=== PATIENT | female | born 1975 | race Caucasian/White ===

== ENCOUNTER → 2017-07-29 08:12 | Outpatient (CLI) | payer BC, SELFPAY ==
[2015-06-22 03:00] VITALS: BP 122/86
[2017-07-28 09:09] VITALS: BP 120/78; BMI 27.7
[2017-07-29 08:48] LABS: Hemoglobin A1c 5.4 % (4.2-6.3)
[2017-07-29 09:09] LABS: AST(SGOT) 16 U/L (15-37); Alanine Aminotransfer ALT/SGPT 14 U/L (13-56); Albumin, Serum 3.7 g/dL (3.2-5.0); Alkaline Phosphatase 61 U/L (45-117); Anion Gap 9 (5-15); BUN 19 mg/dL (7-18); BUN/Creat Ratio 23.8 RATIO (10-20); Calcium,Total 8.7 mg/dL (8.5-10.1); Chloride 105 mmol/L (98-107); EST Glomerular Filtration Rate 83 mL/min (>60); Est Glom Filt Rate - Afr Amer 100 mL/min (>60); Free T3 2.4 pg/mL (2.18-3.98); Globulin 3.6 g/dL (2.2-4.2); Glucose 111 mg/dL (74-106); Potassium 4.5 mmol/L (3.5-5.1); Protein, Total 7.3 g/dL (6.4-8.2); Sodium Level 140 mmol/L (136-145); T4 Free Direct 0.99 ng/dL (0.76-1.46); Thyroid Stim Hormone (TSH) 1.79 uIU/mL (0.358-3.74)
[2017-08-03 07:10] LABS: Adrenocorticotropic Hormone 18.6 pg/mL (7.2-63.3); Estrogen, Total, Serum 119 pg/mL (.)
== END ==
PROVIDERS: Family Provider Family Medicine; PCP Family Medicine; Visit Provider Nurse Practitioner
DX: L74.519 Primary focal hyperhidrosis, unspecified (principal)
CPT/HCPCS: 36415; 80053; 82024; 82533; 82672; 83036; 84439; 84443; 84481

== ENCOUNTER → 2019-01-10 | Outpatient (CLI) | payer BC, SELFPAY ==
[2017-07-28 09:09] VITALS: BMI 27.7
--- NOTE | 2019-01-10 12:42 | MRI_ITS ---
HISTORY:left ankle sprain, calcaneofibular ligament, fx cuboidINJURY 12/21/18 , pain lateral ankle MRI EXAMINATION OF THE Left ANKLE COMPARISON: none TECHNIQUE: Sagittal T1, STIR, coronal T2 fat-suppressed and axial oblique STIR and axial T2 and T1-weighted images # of images including paperwork:184 FINDINGS: BONES; there is marrow edema that is seen involving the posterior lateral calcaneus at the superior aspect compatible with a contusion. Minimal marrow edema is also seen at the far lateral posterior talar dome at the level of the distal tibiofibular joint There is no evidence of a cuboid fracture. TIBIOTALAR JOINT: There is a small tibiotalar joint effusion. Osteochondral surfaces of the tibiotalar joint are unremarkable. No loose bodies. SUBTALAR JOINT: There is a minimal subtalar joint effusion. Osteochondral sufaces are intact. No loose bodies. OTHER TARSAL JOINTS: Small joint effusion involving the calcaneocuboid joint with associated small ganglion cysts extending adjacent to the inferior lateral aspect of the base of the fifth metatarsal. LIGAMENTS: The anterior tibiofibular ligament is intact. The posterior tlbiofilular ligament is intact The anterior talofibular ligament thickened and irregular suspect for a chronic partial tear. There is fluid that does surround the ligament . The posterior talofibular ligament is intact. The calcaneofibular ligament abnormal signal is seen within the ligament also suggesting a partial chronic tear. The edema in the calcaneus is seen in the region of the insertion of the calcaneal fibular ligament and just distal and posterior to the attachment. The deltoid ligaments are intact. The spring ligament is intact. The ligaments of the tarasal sinus are intact. TENDONS: The flexor tendons are unremarkable. The extensor tendons are unremarkable. Minimal fluid surrounds the peroneus longus tendon and to lesser extent the peroneus brevis tendon in the region of the peroneal tubercle of the calcaneus. This can be seen with tenosynovitis. No evidence of a tear. The retinaculum is unremarkable. The Achilles tendon unrmarkable. PLANTAR APONEUROSIS: The plantar aponeurosis is minimal edema is seen deep to the aponeurotic insertion on the calcaneus. NEUROVASCULAR STRUCTURES: The posterior tibial neurovascular bundle appears normal, without intinsic or extrinsic masses or foci or signal alteration. IMPRESSION: There is edema seen within the posterior lateral calcaneus without evidence of acute fracture. A small bump is seen within this region. This is near the region of the calcaneal attachment of the fibular collateral ligament. 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 Small amount of fluid surrounds the anterior talofibular ligament Tenosynovitis involving the peroneus longus and brevis tendons as discussed Minimal edema seen at the posterior talus at the posterior talofibular joint No evidence of a cuboid fracture Small tibiotalar joint effusion Minimal effusion within the subtalar joint There is also a small effusion seen at the cuboid fifth metatarsal joint with insensate small ganglion cyst at 1834 Reported and signed by: Melissa Lujan DO Electronically Signed: Melissa Lujan DO at 18:33 EDT Tel , Service support , MRI/Lower Ext Joint Only (Routine)
== END | disposition home or self-care (01) ==
PROVIDERS: Family Provider Family Medicine; PCP Family Medicine; Referring Provider Podiatrist Foot & Ankle Surgery; Visit Provider Podiatrist Foot & Ankle Surgery
DX: S93.412A Sprain of calcaneofibular ligament of left ankle, initial encounter (principal); S93.492A Sprain of other ligament of left ankle, initial encounter; S92.125A Nondisplaced fracture of body of left talus, initial encounter for closed fracture
CPT/HCPCS: 73721

== ENCOUNTER → 2020-05-21 15:11 | Outpatient (CLI) | payer BC, SELFPAY ==
[2020-05-21 14:50] VITALS: BMI 29.1
[2020-05-21 15:51] LABS: Estradiol 91.6 pg/mL; Follicle Stimulating Hormone 46.9 mIU/mL
== END ==
PROVIDERS: PCP Family Medicine; Referring Provider Obstetrics & Gynecology; Visit Provider Obstetrics & Gynecology
DX: N95.1 Menopausal and female climacteric states (principal)
CPT/HCPCS: 36415; 82670; 83001

== ENCOUNTER → 2020-07-30 08:49 | Outpatient (CLI) | payer OTHER, SELFPAY ==
[2020-05-21 14:50] VITALS: BMI 29.1
--- NOTE | 2020-07-30 08:52 | BI_ITS ---
MAMMOGRAPHY - BILATERAL SCREENING REASON FOR EXAM: Female, 45 years old. Routine annual screening examination. PERTINENT HISTORY: Non-contributory. TECHNIQUE: Digital bilateral breast renetta (3D mammographic acquisition) in the CC and MLO projections. 2-D mediolateral oblique (MLO) and craniocaudad (CC) views of both breasts were obtained. CAD: Full Field Digital Mammography with Computer Added Detection was performed. COMPARISON: Comparison is made with prior outside examination dated 06/23/2017. FINDINGS: Breast Composition: The breasts are extremely dense, which lowers the sensitivity of mammography. There are no dominant masses or suspicious calcifications. No other significant abnormalities are identified. There has been no significant change since the prior study. BI/SCRN MAMM (CAD)W/RENETTA BILAT IMPRESSION: Stable bilateral screening mammogram. Yearly follow-up mammogram recommended. (A) ASSESSMENT CATEGORY: BIRADS Category 1: Negative. A letter regarding these results will be sent to the patient by the facility within 30 days. Approximately 10% of breast cancers are not detected by mammography. A normal mammogram should not delay biopsy of a clinically suspicious abnormality. [id number] Electronically Signed: Ian Navas MD at 10:27 EST , Service support ,
== END ==
PROVIDERS: PCP Family Medicine; Referring Provider Obstetrics & Gynecology; Visit Provider Obstetrics & Gynecology
DX: Z12.31 Encounter for screening mammogram for malignant neoplasm of breast (principal)
CPT/HCPCS: 77063; 77067

== ENCOUNTER → 2021-05-06 08:45 | Outpatient (CLI) | payer OTHER, SELFPAY ==
[2021-05-06 10:04] LABS: Absolute Lymphocyte Count 1.55 X10^3/uL (0.83-4.51); Absolute Neutrophil Count 2.4 X10^3/uL (2.0-7.7); Basophil# 0.03 X10^3/uL; Basophil% 0.5 % (0-1); Eosinophil# 0.98 X10^3/uL; Eosinophils% 17.5 % (0-5); Hematocrit 42.2 % (37-47); Hemoglobin 13.9 g/dL (12.0-15.0); Lymphocyte # 1.55 X10^3/ul (0.83-4.51); Lymphocyte % 27.7 % (19-41); Mean Corp Hgb Conc 32.9 g/dL (32-36); Mean Corpuscular Hgb 30.3 pg (27.0-32.0); Mean Corpuscular Volume 92.1 fL (81-99); Mean Platelet Vol. 8.9 fl (6.2-12.0); Monocyte# 0.58 X10^3/uL; Monocyte% 10.4 % (0-10); NRBC Flagged by Analyzer 0 % (0-5); Neutrophil # 2.44 X10^3/uL (2.7-7.7); Neutrophil % 43.7 % (47-70); Platelet Count 301 K/mm3 (150-450); RBC Distribution Width CV 12.6 % (11.6-14.6); RBC Distribution Width SD 42.4 fl (35.1-43.9); Red Blood Count 4.58 M/mm3 (4.2-5.4); White Blood Count 5.6 K/mm3 (4.4-11.0)
[2021-05-06 10:23] LABS: Hemoglobin A1c 5.4 % (3.8-5.6)
[2021-05-06 10:54] LABS: ALB/GLOB Ratio 0.9 RATIO (0.9-2.4); AST(SGOT) 21 U/L (15-37); Alanine Aminotransfer ALT/SGPT 17 U/L (13-56); Albumin, Serum 3.5 g/dL (3.2-5.0); Alkaline Phosphatase 74 U/L (45-117); Anion Gap 4 (5-15); BUN 21 mg/dL (7-18); BUN/Creat Ratio 24.9 RATIO (10-20); CRP, High Sensitivity Cardiac 3.03 mg/L; Chloride 104 mmol/L (98-107); Cholesterol 201 mg/dL (200); Creatinine, Serum 0.84 mg/dL (0.55-1.02); EST Glomerular Filtration Rate 76 mL/min (>60); Est Glom Filt Rate - Afr Amer 92 mL/min (>60); Globulin 3.8 g/dL (2.2-4.2); Glucose 104 mg/dL (74-106); High Density Lipoprotein 78 mg/dL; Potassium 4.4 mmol/L (3.5-5.1); Protein, Total 7.3 g/dL (6.4-8.2); Sodium Level 136 mmol/L (136-145); Thyroid Stim Hormone (TSH) 1.72 uIU/mL (0.358-3.74); Triglycerides 62 mg/dL; Very Low Density Lipoprotein 12 mg/dL (5-40)
== END ==
PROVIDERS: PCP Family Medicine; Referring Provider Nurse Practitioner Family; Visit Provider Nurse Practitioner Family
DX: M62.81 Muscle weakness (generalized) (principal); E66.9 Obesity, unspecified; R53.82 Chronic fatigue, unspecified
CPT/HCPCS: 36415; 80053; 80061; 83036; 84443; 85025; 86141

== ENCOUNTER → 2022-08-13 | Outpatient (CLI) | payer OTHER, SELFPAY ==
--- NOTE | 2022-08-13 10:44 | BI_ITS ---
MAMMOGRAPHY - BILATERAL SCREENING REASON FOR EXAM: Female, 47 years old. Routine annual screening examination. PERTINENT HISTORY: Non-contributory. TECHNIQUE: Digital bilateral breast renetta (3D mammographic acquisition) in the CC and MLO projections. 2-D mediolateral oblique (MLO) and craniocaudad (CC) views of both breasts were obtained. CAD: Full Field Digital Mammography with Computer Added Detection was performed. COMPARISON: Comparison is made with prior study of July 2020. FINDINGS: Breast Composition: The breasts are extremely dense, which lowers the sensitivity of mammography. There are no dominant masses or suspicious calcifications. Stable small benign-appearing bilateral axillary lymph nodes. No other significant abnormalities are identified. There has been no significant change since the prior study. BI/SCRN MAMM (CAD)W/RENETTA BILAT IMPRESSION: Stable bilateral screening mammogram. Yearly follow-up mammogram recommended. (A) ASSESSMENT CATEGORY: BIRADS Category 2: Benign. A letter regarding these results will be sent to the patient by the facility within 30 days. Approximately 10% of breast cancers are not detected by mammography. A normal mammogram should not delay biopsy of a clinically suspicious abnormality. [id number] Electronically Signed: Ian Navas MD at 11:27 EST ,
== END | disposition home or self-care (01) ==
LOC: OPBI 10:42
PROVIDERS: PCP Family Medicine; Visit Provider Obstetrics & Gynecology
DX: Z12.31 Encounter for screening mammogram for malignant neoplasm of breast (principal)
CPT/HCPCS: 77063; 77067

== ENCOUNTER 2022-09-12 13:30 | Outpatient (RCR) | payer OTHER, SELFPAY ==
--- NOTE | 2022-08-01 16:44 | HP.PTEVAL ---
Patient's Visit Information WERO COTTRELL is a 47 year old F referred to Physical Therapy by Dr. Evert Brody MD with a diagnosis of ARTHRITIS OF R ANKLE. Date of Evaluation: 08/01/22 Physical Therapist: Kathleen Robertson PT, Cert MDT - Visit Plan Frequency: 2-3x /Week Duration: 2-4 Months Plan: GAIT TRAINING. WEIGHT BEARING IN BOOT ONLY UNTIL NEXT SURGICAL FOLLOW UP. R LE ROM, STRETCHING AND STRENGTHENING. HEP INSTRUCTION. 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 CURRENTLY [employer]. Disability: NO. Present symptoms: SHARP PAIN ON THE OUTSIDE OR RIGHT ANKLE. NUMBNESS AND TINGLING AND SHOOTING HOT NERVE PAINS ACROSS THE OUTSIDE, TOP AND INSIDE OF FOOT. BIG TOE IS ABOUT 1/2 NUMB. OTHER TOES HAVE FEELING BACK NOW. Present since: AUGUST 1999 TIMALEOLAR FX TREATED WITH ORIF. HORSE FELL ON HER ON THE ROAD. REVOVERED WELL UNTIL UNTIL 2-3 YEARS AGO WHEN IT FLARED UP FOR NO APPARENT REASON AND PROGRESSIVELY GOT WORSE. Pain Scale: WORST 9/10, LEAST 4/10. Currently: 6/10. Is it getting better, worse or staying the same: GETTING BETTER. Worse: LEAVING IT DOWN, WALKING ON IT. Better: PUTTING IT UP, ICE, MEDICINE AND NOT WALKING ON IT. Disturbed sleep: YES. Treatment this episode: TOTAL ANKLE REPLACEMENT 06/12/22. Gait: CURRENTLY BACK ON CRUTCHES AND/OR KNEE SCOOTER. DOING BARN CHORES BUT NOT RIDING HORSES. Bowel or Bladder Dysfunction: NO. Accidents: NO OTHER ACCIDENTS. Unexplained weight loss: NO. Imaging: MOST RECENT X-RAY WAS LAST Thursday07/25/22 - PATIENT REPORTS EVERYTHING LOOKED GOOD. PLACEMENT LOOKED GOOD. EVERYTING IS EXACTLY WHERE IT IS SUPPOSED TO BE. 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 ANXIETY. ALLERGIES. MENOPAUSE. OTHER: RELEASED TO WBAT ABOUT 6 DAYS AGO TOLERATED. STATES SHE OVER-DID IT IMMEDIATELY SO WENT BACK ON CRUTCHES AND TAKING IT EASIER NOW. NWB SINCE SURGERY X 6 WKS UNTIL LAST THURSDAY. OTHER: TRIED MEDICATIONS AND ACTIVITY MODIFICATIONS PRIOR TO SURGERY BUT NOT PT THIS TIME. PATIENT DENIES ANY COMPLICATIONS FROM SURGERY. FOLLOW UP WITH DR. BRODY PENDING SEPTEMBER 05 2022. PATIENT REPORTS SHE HAS NOT BEEN DOING ANY FOOT OR ANKLE EX'S. STATES SHE THINKS SHE IS SUPPOSED TO WEIGHT BEAR IN THE BOOT UNTIL FOLLOW UP WITH DR. BRODY. - Objective THIS PATIENT AMBULATES INDEP'LY INTO PT PWB R LE IN BOOT AND ON RHONA AXILLARY CRUTCHES. GAIT IN TREATMENT ROOM WITH BOOT WITHOUT CRUTCHES LIMPING ON R LE AND TOEING OUT. INCISIONS LOOK GOOD WITHOUT ANY SIGNS OF INFECTION. DECREASED R MEDIAL LOWER LEG, ANKLE AND FOOT LIGHT TOUCH SENSATION COMPARED TO LEFT. ROM: RIGHT ANKLE AROM: MINUS 10 DEG DORSIFLEX TO 20 DEG PLANTARFLEXION. 17 DEG INVERSION TO 5 DEG EVERSION. PATIENT ABLE TO ACTIVELY MOVE ALL TOES. R KNEE ROM IN SUPINE WITH HEEL SLIDE: FULL EXT TO 138 DEG FLEXION. STRENGTH: R ANKLE ALL PLANES 2/5. GIRTH MEASUREMENTS: TOP OF INCISION 25 CM, MALEOLI 30 CM, MET HEADS 22 CM. TREATMENT: PATIENT HAS NOT BEEN DOING ANY FOOT OR ANKLE EX'S. HEP INSTRUCTION FOR AROM OF TOES, ANKLE PUMPS, ANKLE ALPHABET AND HEEL SLIDES 10 TO 20 REPS EVERY [address] SLR'S 2X10, 1-2 TIMES A DAY. ALSO INSTRUCTED PATIENT TO CONTINUE WITH ICE AND ELEVATION ALONG WITH GAIT WBAT IN THE BOOT - CRUTCHES NEEDED TO CONTROL PAIN AND SWELLING. PATIENT DEMONSTRATED/COMMUNICATED A GOOD UNDERSTANDING OF ALL INSTRUCTIONS AFTER GIVEN. Sitting/Standing Posture: Lordosis: Lateral shift: Relevant shift: Active Correction of posture: Other Observations: Sensory deficit: ROM deficit: Motor deficit: Reflexes: Dural Signs: Lumbar mvmt loss: flex -. ext -. R SG -. L SG -. Core strength: Palpation: FUNCTIONAL SCREEN: Incontinence Impact Questionnaire Score: Urogenital Distress Inventory Score: TREATMENT: NEUROMUSCULAR REEDUCATION - RETRAINING OF MVMT AND POSTURE FOR SITTING, LYING AND STANDING ACTIVITIES. - Balance/Special Test Scores Lower Extremity Functional Score: 29 - Goals Goal 1:: DECREASE C/O R ANKLE PAIN Goal Time Frame: 8-12 Weeks Goal 2:: INDEP AND SAFE GAIT WITH LEAST AD AND LEAST DEVIATIONS ON LEVEL SURFACES AND UP AND DOWN STEPS. Goal Time Frame: 8-12 Weeks Goal 3:: IMPROVE PAINFREE FUNCTIONAL ROM OF R FOOT AND ANKLE TO IMPROVE ADL'S. Goal Time Frame: 8-12 Weeks Goal 4:: INCREASE FUNCTIONAL STRENGTH OF R FOOT AND ANKLE TO IMPROVE ADL'S. Goal Time Frame: 8-12 Weeks Goal 5:: PATIENT WILL BE INDEP WITH A HEP FOR CONTINUED IMPROVEMENT ONCE FORMAL PHYSICAL THERAPY CONCLUDES. Goal Time Frame: 8-12 Weeks - Anticipated Interventions Patient/Client Instruction: Educate patient on: Condition, Plan of Care, Risk Factors For the Purpose of:: To improve self management Therapeutic Exercise to Include: Strength training, Balance training, Flexibilty training, Gait and locomotor training, Neuromotor development For the Purpose of:: To decrease pain, To increase ROM, To improve muscle performance and motor function, To increase tolerance to activity/condition/position, To improve ability of physical actions for home/community/work/leisure, To improve gait and locomotor functions Cryotherapy (ice pack, ice massage): Yes For the Purpose of:: To decrease pain, To decrease swelling/inflammation Thank you for the opportunity to evaluate your patient. For Medicare and Medicare HMO plans, please review the plan of care and approve it. It will need to be FAXED BACK to us at [phone] for Medicare purposes. For Medicare only, by signing this I certify the plan of care. Please let me know if there are questions or concerns regarding this plan of care. Physician Signature: Date:
--- NOTE | 2022-09-12 14:05 | HP.PTDCSUM ---
It has been my pleasure to treat WERO COTTRELL referred by Dr. Evert Brody MD, with the diagnosis of ARTHRITIS OF R ANKLE for a total of 11 visit(s). Discharge Date: Please see the following information for a summary of their discharge status. Subjective: PATIENT REPORTS HER ROM IS A LOT BETTER. STATES IT IS SLOWLY GETTING STRONGER TOO. STATES HER ROM WAS REALLY BAD BEFORE SURGERY AND EVEN THOUGH IT IS STILL LIMITED IT IS WAY MORE THAN IT WAS BEFORE SX. SHOE IS UNCOMFORTABLE BECAUSE OF THE WAY IT DIGS IN. WEARS BOOTS ALL THE TIME AND MUCH MORE COMFORTABLE. NO ANKLE PAIN BUT INTERMITTENT FOOT PAIN WITH TOO MUCH ACTIVITY. STATES THE SURGEON LEFT IT UP TO HER ON HOW MUCH MORE PT TO DO AND SHE REPORTS SHE WILL BE STARTING LESSONS IN A WEEK AND REALLY DOESN'T HAVE TIME TO COME. WILL CONTINUE HEP. Right ankle Pain Intensity (Out of 10): 0 % Improvement: 70 Objective/Function: PATIENT WAS SEEN TODAY FOR RE-ASSESSMENT OF PROGRESS TOWARD THE SET PT GOALS AND THE NEED FOR FURTHER PHYSICAL THERAPY VS READINESS FOR DISCHARGE. PATIENT APPEARS TO BE A GOOD CANDIDATE TO CONTINUE PT BASED ON PROGRESS MADE AND ROOM FOR FURHTER IMPROVEMENT BUT SHE DOES NOT FEEL SHE HAS TIME TO CONTINUE AND WOULD LIKE TO TRY ON HER OWN NOW. UPON EXAM TODAY: RIGHT ANKLE AROM: MINUS +2 DEG DORSIFLEX TO 55 DEG PLANTARFLEXION. 40 DEG INVERSION TO 10 DEG EVERSION. PATIENT ABLE TO ACTIVELY MOVE ALL TOES. STRENGTH: R ANKLE ALL PLANES 3-/5. GIRTH MEASUREMENTS: TOP OF INCISION 24.5 CM, MALEOLI 30 CM, MET HEADS 22 CM. HEP CHECK. [ End ] Goal 1:: DECREASE C/O R ANKLE PAIN Goal Progress: Goal Met Goal 2:: INDEP AND SAFE GAIT WITH LEAST AD AND LEAST DEVIATIONS ON LEVEL SURFACES AND UP AND DOWN STEPS. Goal Progress: Progressing Goal 3:: IMPROVE PAINFREE FUNCTIONAL ROM OF R FOOT AND ANKLE TO IMPROVE ADL'S. Goal Progress: Progressing Goal 4:: INCREASE FUNCTIONAL STRENGTH OF R FOOT AND ANKLE TO IMPROVE ADL'S. Goal Progress: Progressing Goal 5:: PATIENT WILL BE INDEP WITH A HEP FOR CONTINUED IMPROVEMENT ONCE FORMAL PHYSICAL THERAPY CONCLUDES. Goal Progress: Progressing Plan: D/C DUE TO PATIENT TIME CONSTRAINTS. WE WOULD BE HAPPY TO RESUME PT AT PATIENTS REQUEST NEEDED IN THE FUTURE. If there are questions or concerns regarding this patient's physical therapy, please feel free to call me at [phone]. Thank you for the referral of this patient. Sincerely, Kathleen Robertson PT, Cert MDT Balance/Gait/Functional tests - Balance/Special Test Scores Lower Extremity Functional Score: 55
== END 2022-09-12 19:00 | disposition home or self-care (01) ==
LOC: PT 13:30
PROVIDERS: PCP Family Medicine
DX: M19.079 Primary osteoarthritis, unspecified ankle and foot (principal)
CPT/HCPCS: 97110; 97162; 97164; 97530

== ENCOUNTER → 2022-11-10 | Outpatient (CLI) | payer OTHER, SELFPAY ==
[2022-11-10 11:30] LABS: T4 Free Direct 1.04 ng/dL (0.76-1.46); Thyroid Stim Hormone (TSH) 1.78 uIU/mL (0.358-3.74)
[2022-11-11 04:07] LABS: Thyroid Peroxidase AB 11 IU/mL (0-34)
== END | disposition home or self-care (01) ==
PROVIDERS: PCP Family Medicine; Referring Provider Obstetrics & Gynecology; Visit Provider Obstetrics & Gynecology
DX: E01.0 Iodine-deficiency related diffuse (endemic) goiter (principal)
CPT/HCPCS: 36415; 84439; 84443; 86376

== ENCOUNTER → 2022-11-24 | Outpatient (CLI) | payer OTHER, SELFPAY ==
--- NOTE | 2022-11-24 15:35 | US_ITS ---
STUDY: THYROID ULTRASOUND REASON FOR EXAM: Female, 47 years old. Thyromegaly TECHNIQUE: Ultrasound evaluation of the thyroid was performed with real-time and static leblanc-scale imaging. COMPARISON: None. FINDINGS: RIGHT LOBE: The right lobe of the thyroid gland is enlarged and measures 5.1 cm x 1.9 cm x 1.3 cm. There is a homogeneous echotexture. Multiple hypoechoic nodular densities are seen scattered throughout the right lobe. The largest is in the lower pole of the right lobe of the thyroid and measures 6 mm x 5 mm x 4 mm. LEFT LOBE: The left lobe of the thyroid gland measures 4.6 cm x 1.8 cm x 1.5 cm. There is a homogeneous echotexture. Cerebral small hypoechoic solid nodules are seen. The largest measures 7 mm x 4 mm x 3 mm. This is in the mid pole region of the gland. ISTHMUS: The isthmus measures 1.2 mm. Small benign-appearing left cervical lymph nodes. US/Thyroid IMPRESSION: Mildly enlarged right lobe of the thyroid with subcentimeter bilateral hypodense anechoic nodules as described. Electronically Signed: Ian Navas MD at 13:27 EDT ,
== END | disposition home or self-care (01) ==
LOC: US 15:31
PROVIDERS: PCP Family Medicine; Referring Provider Obstetrics & Gynecology; Visit Provider Obstetrics & Gynecology
DX: E01.0 Iodine-deficiency related diffuse (endemic) goiter (principal)
CPT/HCPCS: 76536

== ENCOUNTER → 2024-01-20 | Outpatient (CLI) | payer OTHER, SELFPAY ==
--- NOTE | 2024-01-20 10:57 | BI_ITS ---
MAMMOGRAPHY - BILATERAL SCREENING REASON FOR EXAM: Female, 48 years old. Routine annual screening examination. PERTINENT HISTORY: Non-contributory. TECHNIQUE: Digital bilateral breast renetta (3D mammographic acquisition) in the CC and MLO projections. 2-D mediolateral oblique (MLO) and craniocaudad (CC) views of both breasts were obtained. CAD: Full Field Digital Mammography with Computer Added Detection was performed. COMPARISON: Comparison is made with prior study dated August 13, 2022 and July 30, 2020. FINDINGS: Breast Composition: The breasts are extremely dense, which lowers the sensitivity of mammography. There are no dominant masses or suspicious calcifications. Stable fat-containing axillary lymph nodes. No other significant abnormalities are identified. There has been no significant change since the prior study. BI/SCRN MAMM (CAD)W/RENETTA BILAT IMPRESSION: Stable bilateral screening mammogram. Yearly follow-up mammogram recommended. (A) ASSESSMENT CATEGORY: BIRADS Category 2: Benign. A letter regarding these results will be sent to the patient by the facility within 30 days. Approximately 10% of breast cancers are not detected by mammography. A normal mammogram should not delay biopsy of a clinically suspicious abnormality. [id number] Electronically Signed: Ian Navas MD at 12:03 EDT ,
== END | disposition home or self-care (01) ==
LOC: OPBI 10:57
PROVIDERS: PCP Family Medicine; Referring Provider Nurse Practitioner Family; Visit Provider Nurse Practitioner Family
DX: Z12.31 Encounter for screening mammogram for malignant neoplasm of breast (principal)
CPT/HCPCS: 77063; 77067

== ENCOUNTER → 2024-11-18 | Outpatient (CLI) | payer OTHER, SELFPAY ==
--- NOTE | 2024-11-18 08:10 | CT_ITS ---
PROCEDURE: SINUS/FACIAL BONE REASON FOR EXAM: OTHER CHRONIC SINUSITIS TECHNIQUE: CT of the paranasal sinuses without contrast. Coronal and Sagittal reconstruction series were provided. One or more dose reduction techniques were used (e.g., Automated exposure control, adjustment of the mA and/or kV according to patient size, use of iterative reconstruction technique). COMPARISON: None available FINDINGS: The paranasal sinuses appear well formed without any significant appearing wall thickening or sclerosis. Mild mucoperiosteal thickening bilateral frontal sinuses with soft tissue opacification of the right frontoethmoidal recess, the left appears patent. Lcao-[id number] mucosal thickening throughout bilateral ethmoid air cells. Moderate frothy air-fluid level right maxillary sinus with moderate circumferential mucoperiosteal thickening. Mild circumferential mucoperiosteal thickening left maxillary sinus. Patent bilateral left larger than right maxillary antral windows. Small frothy air-fluid level left sphenoid sinus. The left sphenoethmoidal recess is patent. Focal soft tissue opacification of the right sphenoethmoidal recess although there is a possible surgical defect connecting to an adjacent ethmoidal air cell which is patent for example axial 98 and coronal 55. Mild leftward deviation of the anterior nasal septum. No nasal spur. The turbinates appear within limits. Orbits appear within limits. Infratemporal fossa fat appears preserved. Symmetric appearance of the pterygopalatine foramen. Symmetric appearance of the right and left fossa of Rosenmuller. TMJs appear normally located. No dental periapical lucencies. The mastoids, middle ears and internal auditory canals appear within limits. Partially imaged cervical spondylosis noted. CT/Sinus/Facial Bone IMPRESSION: Acute on chronic paranasal sinusitis with areas of postsurgical change as above appears greatest right maxillary sinus. Reading Location: [id number]
== END | disposition home or self-care (01) ==
LOC: CT 08:05
PROVIDERS: PCP Family Medicine; Referring Provider Otolaryngology; Visit Provider Otolaryngology
DX: J32.8 Other chronic sinusitis (principal)
CPT/HCPCS: 70486

== ENCOUNTER → 2024-12-14 | Outpatient (CLI) | payer OTHER, SELFPAY | END | disposition home or self-care (01) | LOC: LABSPEC 15:20 | PROVIDERS: PCP Family Medicine; Referring Provider Otolaryngology; Visit Provider Otolaryngology | DX: J32.9 Chronic sinusitis, unspecified (principal) | CPT/HCPCS: 87070; 87205 ==

== ENCOUNTER → 2025-02-14 | Outpatient (CLI) | payer OTHER, SELFPAY ==
--- NOTE | 2025-02-14 10:30 | BI_ITS ---
EXAM: SCRN MAMM (CAD)W/RENETTA BILAT DATE: 02/14/2025 CLINICAL HISTORY: F, Age 49 y/o , SCREEN FOR BREAST CANCER No family history. TECHNIQUE: SCRN MAMM (CAD)W/RENETTA BILAT COMPARISON: Prior exam(s) dated January 20, 2024.. FINDINGS: TISSUE DENSITY: The breasts are extremely dense, which lowers the sensitivity of mammography. Bilateral Breast Mammographic Findings: I suspect a 10.4 mm x 7 mm nodule in the deep axillary medial aspect of the right breast. Correlation with ultrasound recommended. BI/SCRN MAMM (CAD)W/RENETTA BILAT IMPRESSION: Questionable 10.4 mm x 7 mm nodule in the deep axillary medial aspect of the ri ght breast. Correlation with ultrasound recommended. OVERALL FINAL ASSESSMENT BI-RADS 0: INCOMPLETE - NEED ADDITIONAL IMAGING EVALUATION. RECOMMENDATION: Ultrasound Recommended A letter with findings and recommendations will be mailed to the patient. Reading Location: [facility]
== END | disposition home or self-care (01) ==
PROVIDERS: PCP Family Medicine; Referring Provider Nurse Practitioner Family; Visit Provider Nurse Practitioner Family
DX: Z12.31 Encounter for screening mammogram for malignant neoplasm of breast (principal)
CPT/HCPCS: 77063; 77067

== ENCOUNTER → 2025-02-17 | Outpatient (CLI) | payer OTHER, SELFPAY ==
--- NOTE | 2025-02-17 14:09 | US_ITS ---
PROCEDURE: BREAST LIMITED UNILATERAL 02/17/2025 REASON FOR EXAM: F, Age 49 y/o , ABNORMAL MAMMOGRAM COMPARISON: Mammogram 02/14/2025, 01/20/2024, 08/13/2022. TECHNIQUE: Procedure Code: USBRSTLIMIT Modality: US Procedure: BREAST LIMITED UNILATERAL FINDINGS: Follow-up examination performed for the asymmetry seen in the superior right breast at posterior depth visualized on the MLO view of 02/14/2025. On the present examination, there is a dilated duct in the right breast at 9 o'clock 9 cm from the nipple measuring 1.7 x 1.4 x 0.4 cm. This is not a definite correlate for the mammographic finding. Follow-up examination performed for the asymmetry in the medial right breast at middle depth visualized on the CC view of 02/14/2025. On the present examination there is no sonographic correlate for the mammographic finding. There is an incidental normal-appearing right axillary lymph node measuring 1.6 x 1.3 x 0.9 cm. US/Breast Limited Unilateral IMPRESSION: 1. The asymmetry in the superior right breast at posterior depth and the asymm etry in the medial right breast at middle depth are probably benign. Recommend short interval diagnostic mammogram of the righ t breast for further evaluation in six-months. BI-RADS 3: PROBABLY BENIGN. RECOMMENDATION: 6 Month Follow-up Reading Location: [id number]
== END | disposition home or self-care (01) ==
LOC: OPUS 13:56
PROVIDERS: PCP Family Medicine; Referring Provider Nurse Practitioner Family; Visit Provider Nurse Practitioner Family
DX: R92.8 Other abnormal and inconclusive findings on diagnostic imaging of breast (principal)
CPT/HCPCS: 76642